=== PATIENT | female | born 1985 | race Caucasian/White ===

== ENCOUNTER 2016-06-08 06:06 | Emergency (ER) | payer OTHER ==
[~2016-06-08] VITALS: Ht 154.9 cm; Wt 46.8 kg
[~2016-06-08 06:06] MED LIST: BUPR1FIL3 SL; HYDR-4003 PO; HYDR1TAB69 PO; OXYC1TAB24 PO; PREN1TAB47 PO; [UNRECOGNIZED DRUG - CODE] PO; [UNRECOGNIZED DRUG - OTHER] PO
[2016-06-08 06:09] VITALS: BP 142/88; PULSE 124; RESP 16; O2SAT 99
--- NOTE | 2016-06-08 06:28 | ED.REPORT ---
HPI-Abd Pain F Under 38 Date of Service Jun 08, 2016 ED Provider: Dr. Stark 30 year old female with a hx of pyelonephritis and nephrolithiasis who presents with dysuria and bilat flank pain since last night. This morning she noted hematuria. She also reports nausea, but denies vomiting and fever. Her pain feels similar to previous pyelonephritis. Pt was seen 9 days ago for cellulitis and IV drug abuse. The patient was started on Suboxone at the time and has not used IV drugs since. Nursing Notes Stated Complaint: POSSIBLE KIDNEY INFECTION/ HEMATURIA Chief Complaint: Female Abdominal Pain Nursing Notes Reviewed: Yes Allergies: Coded Allergies: diphenhydramine HCl (Verified Allergy, Unknown, PALPITATIONS, 06/08/16) penicillin G (Verified Allergy, Unknown, 06/08/16) terbutaline (Verified Allergy, Unknown, FAINTING, 06/08/16) promethazine (Verified Adverse Reaction, Unknown, N/V, 06/08/16) Scheduled ([vistiril]) 25 PO QID Buprenorphine HCl/Naloxone HCl (Suboxone 8 mg-2 mg Sl Film) 1 Each Film 1 EACH SL BID Hydrocod/APAP-Expunged, Do Not Renew! (VICODIN 5/500-Expunged Drug, Do Not Renew ) 1 Each Tablet 1 EACH PO TID Nifedipine-Expunged Drug, Do Not Renew! (Nifedipine-Expunged Drug, Do Not Renew! ) 10 Mg Capsule 10 MG PO DAILY Vit/Fe Fumarate/Fa-Expunged Drug, Do (-Expunged Drug, Do Not Renew!) 1 Tab Tablet 1 TAB PO DAILY Scheduled PRN Hydrocodone-Acetaminophen 5-325 mg (Hydrocodone-Acetaminophen 5-325 mg) 1 Each Tablet 1-2 TABLET PO Q4H PRN PRN For Pain oxyCODONE-Acetaminophen 5-325 mg (oxyCODONE-Acetaminophen 5-325 mg) 1 Each Tablet 1-2 TAB PO Q6H PRN PRN For Pain General Time Seen by MD: 06:27 Chief Complaint Dysuria, Flank pain right, Flank pain left Hx Obtained From: Patient Arrived By: Walk-in Onset Occurred: Yesterday Symptom Duration: Since onset Progression since Onset: Constant Location: : Flank left: Flank right Quality: Painful Severity: Current: Severe Associated with: Reports: Nausea, Denies: Fever, Vomiting Exacerbated by: Urination Similar Sx Previous: Yes Past Medical History Past Medical History migraines heart murmur previous kidney infections Endometriosis Mitral valve prolapse SVT Reports: Heroin use, IV Drug use Past Surgical History Reports: (x4) Smoking History Current Every Day Smoker Social History Drug Use: IV drugs, Meth, THC Other Social History: Good social support, Local resident Ambulatory Status Independent Review of Systems Basic Review of Systems Eyes: Vision NL, No discharge ENT: Hearing NL, No pain, No nasal congestion, No pharyngeal pain Neurologic: NL mental status, No weakness, No numbness Psychiatric: Normal thought content Constitutional: Denies: Fever Respiratory: Denies: Shortness of breath GI: Reports: Nausea, Denies: Abdominal pain, Vomiting Female: Reports: Dysuria, Flank pain, Hematuria Complete sys rev & neg: except as marked. Physical Exam Initial Vital Signs Vital Signs (First) Date Time Temp Pulse Resp B/P Pulse Ox O2 Delivery O2 Flow Rate FiO2 06/08/16 06:09 36.6 124 16 142/88 99 Room Air Initial VS: Reviewed Head / Eyes: Atraumatic, Normocephalic, PERRL ENT: Conjunctiva normal, No scleral icterus Neck: Supple, Full range of motion Extremities: Vascular intact, Neuro intact, No swelling, No tenderness Skin: Warm, Dry, No cyanosis Neurologic: Alert, Oriented, Nonfocal Psychiatric: Mood/affect normal, Behavior normal, Normal thought content General/Constitutional: Awake, Alert Distress / Hydration: Positive: Distress moderate Respiratory / Chest: Breath sounds NL, Breath sounds = bilat, No respiratory distress, No rales, No rhonchi, No wheezing Cardiovascular: No murmurs, Cap refill not delayed, Peripheral circulation NL Heart Rate / Rhythm: Positive: Tachycardia Opening snap Abdomen: Soft, Non-tender Back: Atraumatic Flank / Spine / Paraspinal: Positive: Flank tender L, Flank tender R Interpretation & Diagnostics Interpretation & Diagnostics: urine: + LE, blood + meth, heroin, negative preg Lab Results Interpretation Result Diagram: 06/08/16 0645 06/08/16 0645 Test 06/08/16 06:45 06/08/16 09:13 White Blood Count 8.0th/mm3 (3.8-10.1) Red Blood Count 4.51mil/mm3 (3.90-5.20) Hemoglobin 12.6g/dL (12.0-15.6) Hematocrit 38.3% (35.0-46.0) Mean Corpuscular Volume 84.9fL (81-100) Mean Corpuscular Hemoglobin 27.9pg (27.0-35.0) Mean Corpuscular Hemoglobin Concent 32.9% (32.0-37.0) Red Cell Distribution Width 14.9% (12.3-15.4) Platelet Count 300bil/L (150-400) Neutrophils (%) (Auto) 64.9% (40-74) Lymphocytes (%) (Auto) 28.9% (14-46) Monocytes (%) (Auto) 4.5% (4-12) Eosinophils (%) (Auto) 1.4% (0-5) Basophils (%) (Auto) 0.2% (0-3) Sodium Level 141mEq/L (134-144) Potassium Level 4.1mEq/L (3.5-5.2) Chloride Level 102mEq/L (97-108) Carbon Dioxide Level 27mmol/L (18-29) Blood Urea Nitrogen 11mg/dL (6-20) Creatinine 0.58mg/dL (0.57-1.00) Estimat Glomerular Filtration Rate 173mL/min (>59) Glucose Level 96mg/dL (60-99) Lactic Acid Level 1.2mmol/L (0.4-2.0) Calcium Level 9.2mg/dL (8.5-10.1) Magnesium Level 2.0mg/dL (1.6-2.6) Total Bilirubin 0.2mg/dL (0.0-1.2) Aspartate Amino Transf (AST/SGOT) 28U/L (0-50) Alanine Aminotransferase (ALT/SGPT) 25U/L (0-32) Alkaline Phosphatase 101U/L (25-150) Total Protein 7.3g/dL (6.4-8.4) Albumin 4.1g/dL (3.4-5.0) Lipase 18U/L (13-60) Re-Eval/Medical Decision Re-Evaluation/Progress #1: Time of Eval: 07:19 Re-Evaluation/Progress Note: Pain is better controlled. Re-Evaluation/Progress #2: Time of Eval: 08:59 Re-Evaluation/Progress Note: Pt still appears uncomfortable. Re-Evaluation/Progress #3: Time of Eval: 09:23 Re-Evaluation/Progress Note: Pt updated of labs. Discussed plan for discharge and follow up. All questions addressed. Counseled Regarding: Diagnosis, Lab results, Need for follow-up, When/why to return to ED Discharge & Departure Primary Impression: UTI (urinary tract infection) Additional Impression: Opiate addiction Disposition: Home Discharge Condition All VS Reviewed: Yes Condition: Improved Additional Instructions: I'm sorry you are hurting so much. Your labs, urine and exam all suggest a bladder infection without severe or overwhelming infection You got your first dose of antibiotics in the ER IV (ceftriaxone). You will need to finish cipro 500mg am and pm for another 5 days Please follow up with [facility] for suboxone and help with your addiction If you are getting worse (fevers, vomiting) please return to the ER Referrals: NOPCP (PCP) Radha Barbour MD Scribe Attestation Portions of this note were transcribed by Mirtha Watson. I, (Dr. Stark) personally performed the history, physical exam and medical decision-making; I reviewed and confirmed the accuracy of the information in the transcribed note. Signed by: Mirtha Watson. 06/08/2016, 0728 copies to: Radha Barbour MD, Shawna L MD Jun 08, 2016 06:28 Mirtha Watson Jun 08, 2016 06:43
[2016-06-08] MEDS ORDERED: cefTRIAXone Inj 2,000 MG in IV Premix 1 EACH IV ONE (06:40)
[2016-06-08] MEDS ORDERED: 0.9% Sodium Chloride 1,000 ML IV ONE ×2 (06:40)
[2016-06-08] MEDS ORDERED: Ondansetron 2 mg/mL 2 mL Inj IVPUSH ONE (06:40)
[2016-06-08 07:04] LABS: BASOPHILS % (AUTO) 0.2 % (0-3); EOSINOPHILS % (AUTO) 1.4 % (0-5); MONOCYTES % (AUTO) 4.5 % (4-12); Mean Corpuscular Hemoglobin 27.9 pg (27.0-35.0); Mean Corpuscular Volume 84.9 fL (81-100); NEUTROPHILS % (AUTO) 64.9 % (40-74); Platelet Count 300 bil/L (150-400)
[2016-06-08] MEDS ORDERED: CIPR750T4 PO (09:43)
[2016-06-08 10:01] LABS: APPEARANCE,URINE CLOUDY (CLEAR,HAZY); COLOR,URINE BLOODY (YELLOW); OCCULT BLOOD,URINE LARGE (NEGATIVE); PH,URINE 6.5 (5.0-8.0)
[2016-06-08 10:02] LABS: UROBILINOGEN,URINE NORMAL (NORMAL); YEAST,URINE MODERATE (NONE SEEN)
[2016-06-08 10:26] VITALS: BP 99/58; PULSE 90; RESP 10; O2SAT 100
== END 2016-06-08 10:27 | disposition home or self-care (01) ==
LOC: SED 06:06
DX: N39.0 Urinary tract infection, site not specified (principal); F11.20 Opioid dependence, uncomplicated; F17.200 Nicotine dependence, unspecified, uncomplicated; Z88.8 Allergy status to other drugs, medicaments and biological substances; Z88.0 Allergy status to penicillin
CPT/HCPCS: 36415; 80053; 81000; 81025; 83605; 83690; 83735; 85025; 87086; 87088; 96361; 96365; 96375; 99285; J0696; J2405; J7030